=== PATIENT | male | born 1990 | race Caucasian/White ===

== ENCOUNTER 2018-04-06 09:49 | Emergency (ER) | payer SELFPAY ==
[2018-04-06 09:50] VITALS: BP 151/93; PULSE 62; RESP 18; TEMP 36.3; BMI 19.5
[2018-04-06] MEDS: Ondansetron 4 MG/2 ML Vial IV (10:14)
[2018-04-06] MEDS: 0.9% Normal Saline 1,000 ML 250 ML IV (10:14)
[2018-04-06] MEDS: Ketorolac 30 MG/ML Syringe IV (10:14)
[2018-04-06 10:16] LABS: Mucous, Urine 0 SEEN /hpf (<or=2+); Squamous Epithelial Cells - UA 0 SEEN /hpf (0-5)
[2018-04-06 10:19] LABS: Color, Urine Yellow (Yellow); Glucose, Dipstick Normal (Normal); Ketone-Dipstick 15 mg/dl (Negative); Leukocyte Esterase-Dipstick 25 /ul (Negative); Nitrite-Dipstick Negative (Negative); Occult Blood-Urine 250 /ul (Negative); Protein-Dipstick 30 mg/dl (Negative); Specific Gravity, Urine 1.025 (1.002-1.030); Urine Bilirubin Dipstick Negative (Negative); Urine Clarity Sl. Cloudy (Clear); Urine Urobilinogen 1 mg/dl (Normal)
[2018-04-06 10:21] LABS: Absolute Lymphocyte Count 4.07 X10^3/ul (0.83-4.51); Absolute Neutrophil Count 5.5 X10^3/uL (2.0-7.7); Basophil# 0.04 X10^3/uL; Basophil% 0.4 % (0-1); Eosinophils% 1.8 % (0-5); Hematocrit 44.3 % (40-54); Hemoglobin 15.3 g/dl (13.0-16.5); Lymphocyte # 4.07 X10^3/ul (4.0); Lymphocyte % 36.4 % (19-41); Mean Corp Hgb Conc 34.5 g/gl (32-36); Mean Corpuscular Hgb 31.6 pg (27.0-32.0); Mean Corpuscular Volume 91.5 fL (80-94); Mean Platelet Vol. 12.3 fl (6.2-12.0); Monocyte# 1.35 X10^3/uL; Monocyte% 12.1 % (0-10); Neutrophil # 5.51 X10^3/uL (2.7-7.7); Neutrophil % 49.2 % (47-70); POSITIVE COUNT NO; POSITIVE DIFFERENTIAL NO; POSITIVE MORPHOLOGY NO; Platelet Count 180 K/mm3 (150-450); RBC Distribution Width CV 13.4 % (11.6-14.6); RBC Distribution Width SD 44.7 fl (35.1-43.9); Red Blood Count 4.84 M/mm3 (4.6-6.2); White Blood Count 11.2 K/mm3 (4.4-11.0)
[2018-04-06 10:26] LABS: Anion Gap 11 (5-15); BUN 16 mg/dL (7-18); BUN/Creat Ratio 15.2 RATIO (10-20); Calcium,Total 9.4 mg/dL (8.5-10.1); Chloride 105 mmol/L (98-107); Creatinine, Serum 1.05 mg/dL (0.70-1.30); EST Glomerular Filtration Rate 90 mL/min (>60); Est Glom Filt Rate - Afr Amer 109 mL/min (>60); Glucose 101 mg/dL (74-106); Potassium 3.6 mmol/L (3.5-5.1); Sodium Level 143 mmol/L (136-145)
[2018-04-06 10:39] LABS: Bacteria 1+ /hpf (None Seen); Red Blood Cells-Urine 25-50 SEEN /hpf (0-5); White Blood Cells 0-5 SEEN /hpf (0-5)
[2018-04-06 11:08] VITALS: BP 158/94; PULSE 55; RESP 16; O2SAT 100
[2018-04-06] MEDS: morphine 10 MG/ML Syringe 3 MG IV (11:08)
--- NOTE | 2018-04-06 11:17 | ED.VISSUMM ---
- ER Visit Summary Date of Service: 04/06/18 Chief Complaint: Acute left flank pain that awoke patient from sleep History of Present Illness: The patient is a 27 M who presents with acute left flank pain that awoke him from sleep early this morning that is radiating anteriorly and associated with nausea. He denies fever, chills night sweats. He denies cough, shortness of breath or difficulty breathing. There is no history of trauma. He denies dysuria, frequency, urgency or hematuria. He states he cannot find a position of comfort. He has no history of renal ureterolithiasis and there is no family history of renal or ureteral lithiasis. He has no allergies. Physical Examination: Blood pressure is elevated 158/94. Patient is pacing. He appears pale and diaphoretic. He is in obvious discomfort. HEENT exam is unremarkable. Heart is regular without murmur, gallop or rub. S1 and S2 are normal. Lungs are clear to auscultation with good movement of air bilaterally. Abdomen is soft nontender with normal bowel sounds. There is minimal left CVA tenderness to percussion. There is no dermatologic lesions to suggest shingles. There is no umbilical or inguinal hernia and there is no inguinal lymphadenopathy. The remainder of his exam is unremarkable. Test Results: White count slightly elevated 11.2 thousand. Electro panel is unremarkable. Urine is remarkable for microscopic hematuria. CT of the abdomen pelvis without contrast reveals a 2 mm UVJ stone with hydroureteronephrosis. Emergency Department Course and Treatment: IV was established he was initially treated with 30 mg Toradol and formalin of Zofran. He continued to have discomfort. He was then administered 4 mg of morphine. He was reassessed at 1115. His pain is decreased by 90%. Is no longer pale diaphoretic or in obvious discomfort. Treatment Plan: Outpatient follow-up with urology and prescription for NSAID and opiate analgesia Disposition: Discharged home in stable and improved condition Impression: Acute left flank pain secondary to a 2 mm left UVJ stone with hydroureter and nephrosis This note was generated with [employer] dictation software. It may contain incorrect words, spelling, and punctuation that were not noted in review of the chart prior to signing ED Disposition - Plan for ED Patient: Disposition: Home or Assisted Living Chief Complaint: Flank Pain Instructions: ED Stone Renal W Colic Prescriptions: Oxycodone HCl/Acetaminophen [Percocet 5/325] 1 tab PO Q6H PRN PRN 5 Days #20 tab PRN Reason: Pain Naproxen [Naprosyn] 500 mg PO BID #14 tab Referrals: Care Physician,No Primary [Primary Care Provider] - Sav Lopez MD [STAFF PHYSICIAN] - 1 Week
[2018-04-06 11:39] VITALS: BP 134/79; PULSE 52; RESP 14; O2SAT 99
== END 2018-04-06 11:40 | disposition home or self-care (01) ==
PROVIDERS: Emergency Provider Emergency Medicine
DX: N13.2 Hydronephrosis with renal and ureteral calculous obstruction (principal); N13.4 Hydroureter
CPT/HCPCS: 74176; 80048; 81001; 85025; 96361; 96374; 96375; 99283; J7030; A4216; J2405